=== PATIENT | male | born 1960 ===

== ENCOUNTER 2021-06-21 08:55 | Outpatient (CLI) | payer OTHER | END 2021-06-21 09:04 | disposition home or self-care (01) | LOC: SONOGRAMA 08:55 | PROVIDERS: ATTEND Specialist | DX: K76.0 Fatty (change of) liver, not elsewhere classified (principal) ==

== ENCOUNTER 2021-11-01 10:46 | Outpatient (CLI) | payer OTHER | END 2021-11-01 10:48 | disposition home or self-care (01) | LOC: TOM 10:46 | PROVIDERS: ATTEND Specialist | DX: Z12.2 Encounter for screening for malignant neoplasm of respiratory organs (principal) ==